=== PATIENT | female | born 1995 | race Caucasian/White ===

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

== ENCOUNTER 2018-05-16 21:21 | Emergency (ER) | payer MEDICAID, OTHER ==
[~2018-05-16] VITALS: Wt 66.2 kg
[~2018-05-16 21:21] MED LIST changes: +IBUP-1542 PO; +NITR-58 PO
[2018-05-16 21:25] VITALS: Wt 66.2 kg
[2018-05-16] MEDS ORDERED: KETOROLAC 30 MG INJ IV STA (21:58)
[2018-05-16] MEDS ORDERED: METOCLOPRAMIDE 10 MG INJ IV STA (21:58)
[2018-05-16] MEDS ORDERED: DIPHENHYDRAMINE 50 MG INJ IV STA (21:58)
[2018-05-16] MEDS ORDERED: LORAZEPAM 0.5 MG TAB PO ONE (22:00)
--- NOTE | 2018-05-16 23:42 | ERD ---
ER Documentation Chief Complaint Chief Complaint PETERSEN, anxiety, runny nose x2wks; no relief w tylenol HPI 22-year-old female presenting with complaints of right-sided intermittent headache for the past 2 weeks that sometimes radiates to the left side of her head. She describes as aching. No associated nausea, vomiting, vision disturbance, fever, chills, URI symptoms. Headache was gradual in onset. She also complains of severe anxiety that is not being treated with any medications at this time. Her headaches are worse with her anxiety attacks. She recently lost her brother a few months ago and has also been grieving. She denies any suicidal thoughts or ideations. ROS All systems reviewed and are negative except as per history of present illness. Medications Home Meds Discontinued Reported Medications Guaifenesin/D-Methorphan Hb/Pe (TUSSIN CF COUGH & COLD LIQ) 118 Ml Liquid, PRN 12/26/12 Discontinued Scripts Nitrofurantoin Monohyd Macrocr* (Macrobid*) 100 Mg Capsr, 100 MG PO BID for 7 Days, CAP Prov:QUE MIRANDA PA-C 04/18/16 Ibuprofen* (Motrin*) 600 Mg Tab, 600 MG PO Q6, #30 TAB Prov:QUE MIRANDA PA-C 04/18/16 Allergies Allergies: Coded Allergies: No Known Allergy (Unverified , 05/16/18) PMhx/Soc History of Surgery: No Anesthesia Reaction: No Hx Neurological Disorder: No Hx Respiratory Disorders: No Hx Cardiac Disorders: No Hx Psychiatric Problems: Yes (Anxiety) Hx Miscellaneous Medical Probl: No Hx Alcohol Use: No Hx Substance Use: No Hx Tobacco Use: No Smoking Status: Never smoker FmHx Family History: No diabetes Physical Exam Vitals Vital Signs Date Temp Pulse Resp B/P (MAP) Pulse Ox O2 O2 Flow FiO2 Time Delivery Rate 05/16/18 84 16 90/48 (62) 100 Room Air 23:37 05/16/18 101.0 120 22 127/69 99 21:25 (88) Physical Exam Const: No acute distress Head: Atraumatic Eyes: Normal Conjunctiva, PERRLA, EOMI ENT: Normal External Ears, Nose and Mouth. Neck: Full range of motion. No meningismus. Resp: Clear to auscultation bilaterally Cardio: Regular rate and rhythm, no murmurs Abd: Soft, non tender, non distended. Normal bowel sounds Skin: No petechiae or rashes Back: No midline or flank tenderness Ext: No cyanosis, or edema Neur: Awake and alert Psych: Very anxious and tearful. Normal judgment and insight. No SI or HI Results 24 hrs Laboratory Tests Test 05/16/18 22:04 POC Beta HCG, Qualitative NEGATIVE Current Medications Medications Dose Sig/Veronica Start Time Status Last (Trade) Ordered Route PRN Stop Time Admin Dose Reason Admin Lorazepam 0.5 mg ONCE ONCE 05/16/18 DC 05/16/18 (Ativan) PO 22:00 05/16/18 22:16 22:01 10 mg ONCE STAT 05/16/18 DC 05/16/18 Metoclopramid IV 21:58 05/16/18 22:16 e HCl 22:00 (Reglan) Ketorolac 30 mg ONCE STAT 05/16/18 DC 05/16/18 Tromethamine IV 21:58 05/16/18 22:15 (Toradol) 22:00 25 mg ONCE STAT 05/16/18 DC 05/16/18 Diphenhydrami IV 21:58 05/16/18 22:16 ne HCl 22:00 (Benadryl) Procedures/MDM Initial Nursing notes reviewed. Previous Medical Records requested via the Electronic Health Record. EMERGENCY DEPARTMENT COURSE / MEDICAL DECISION MAKING: Patient is presenting with 2 weeks of intermittent headaches and severe anxiety. Vitals were initially notable for possible low-grade fever and tachycardia. However upon reevaluation, she does not have a fever and her tachycardia has improved. Patient does not seem to be a danger to herself. I gave her Ativan orally and give her Reglan, Toradol, and Benadryl for her headache with improvement of her symptoms. I do not suspect acute intracranial hemorrhage, meningitis, encephalitis, or other serious cause of headaches. She is likely suffering from a primary headache that is worsened by her anxiety. Patient feels much better and is stable for discharge. Vitals remained stable while here. Return precautions were discussed. Outpatient follow-up with therapist and psychiatry was recommended. Departure Diagnosis: Primary Impression: Anxiety Additional Impression: Headache Headache type: unspecified Headache chronicity pattern: acute headache Intractability: not intractable Qualified Codes: R51 - Headache Condition: Stable Patient Instructions: Your Body's Response to Anxiety, Grief and Loss, Self- Care for Headaches Referrals: NO PRIMARY,CARE PHYSICIAN (PCP) Additional Instructions: Make an appointment with your therapist for follow-up. I would also recommend you see a psychiatrist. If any of your symptoms worsen or you have any thoughts of self-harm, please return to the ER immediately. IVONNE BRINK MD May 16, 2018 23:42
[2018-05-17 01:10] VITALS: BP 99/53; PULSE 90; RESP 16
== END 2018-05-17 01:10 | disposition home or self-care (01) ==
LOC: E/R 21:21
DX: F41.9 Anxiety disorder, unspecified (principal)
CPT/HCPCS: 81025; 96374; 96375; J1200; J1885; J2765; Z7502; Z7610

== ENCOUNTER 2018-05-19 20:18 | Emergency (ER) | payer MEDICAID ==
[~2018-05-19] VITALS: Wt 65.5 kg
[2018-05-19 20:21] VITALS: Wt 65.5 kg
[2018-05-19] MEDS ORDERED: LORAZEPAM 0.5 MG TAB PO ONE (21:00)
[2018-05-19] MEDS ORDERED: BUTA1CAP38 PO (22:16)
[2018-05-19] MEDS ORDERED: BUSP10TA2 PO (22:16)
--- NOTE | 2018-05-19 22:20 | ERD ---
ER Documentation Chief Complaint Chief Complaint ANXIETY. PETERSEN X'S 3 WEEKS; SEEN HERE 5 DAYS AGO FOR SAME COMPLAINT HPI 22-year-old female presents with sensation of anxiety for last 3 weeks. She is general fearful thoughts. Denies shortness of breath, chest pain, vomiting, abdominal pain, deficits, visual changes. She has an additional complaint of headache on the top of her head for the same time. As well. Her anxiety she believes is related to obsessing about the of her brother which happened a long time ago but she is only now dealing with it. She has not sought counseling. She was seen here previously not prescribed any medication. Denies any fevers, additional symptoms. She denies . Patient states that her headache is also causing anxiety because her mother was treated for an aneurysm and she believes she has something serious. Headache is on the top of her head mostly constant. Dull without radiation. Pain is described as 8 out of 10. ROS All systems reviewed and are negative except as per history of present illness. Medications Home Meds Active Scripts Yoltweorly-Bmewyfghajndi-Rrufuvvs* (Fioricet*) 50-300-40 Mg Capsule, 1 CAP PO Q4H PRN for bid, #15 CAP Prov:ANAMIKA ALVARADO MD 05/19/18 Buspirone Hcl* (Buspirone Hcl*) 10 Mg Tab, 10 MG PO BID, #30 TAB Prov:ANAMIKA ALVARADO MD 05/19/18 Discontinued Reported Medications Guaifenesin/D-Methorphan Hb/Pe (TUSSIN CF COUGH & COLD LIQ) 118 Ml Liquid, PRN 12/26/12 Discontinued Scripts Nitrofurantoin Monohyd Macrocr* (Macrobid*) 100 Mg Capsr, 100 MG PO BID for 7 Days, CAP Prov:QUE MIRANDA PA-C 04/18/16 Ibuprofen* (Motrin*) 600 Mg Tab, 600 MG PO Q6, #30 TAB Prov:QUE MIRANDA PA-C 04/18/16 Allergies Allergies: Coded Allergies: No Known Allergy (Unverified , 05/16/18) PMhx/Soc History of Surgery: No Anesthesia Reaction: No Hx Neurological Disorder: No Hx Respiratory Disorders: No Hx Cardiac Disorders: No Hx Psychiatric Problems: Yes (Anxiety) Hx Miscellaneous Medical Probl: No Hx Alcohol Use: No Hx Substance Use: No Hx Tobacco Use: No Smoking Status: Never smoker FmHx Family History: No diabetes, No coronary disease, No other Physical Exam Vitals Vital Signs Date Temp Pulse Resp B/P (MAP) Pulse Ox O2 O2 Flow FiO2 Time Delivery Rate 05/19/18 99.9 140 20 139/66 98 20:21 (90) Physical Exam Const: No acute distress. Tearful. Head: Atraumatic Eyes: Normal Conjunctiva ENT: Normal External Ears, Nose and Mouth. Neck: Full range of motion. No meningismus. Resp: Clear to auscultation bilaterally Cardio: Regular rate and rhythm, no murmurs Abd: Soft, non tender, non distended. Normal bowel sounds Skin: No petechiae or rashes Back: No midline or flank tenderness Ext: No cyanosis, or edema Neur: Awake and alert. Normal gait. No appreciable focal neurologic deficits. Cranial nerves II through XII grossly intact. No cerebellar signs. Psych: Normal Mood and Affect Results 24 hrs Laboratory Tests Test 05/19/18 20:54 POC Beta HCG, Qualitative NEGATIVE Current Medications Medications Dose Sig/Veronica Start Time Status Last (Trade) Ordered Route PRN Stop Time Admin Dose Reason Admin Lorazepam 0.5 mg ONCE ONCE 05/19/18 DC 05/19/18 (Ativan) PO 21:00 05/19/18 20:55 21:01 Procedures/MDM Patient presents with a history of generalized symptoms of anxiety without chest pain, shortness of breath. She has had a headache for the last few weeks. She is concerned about serious etiology for headache. She denies suicidal or homicidal ideations. She is given Ativan 0.5 mg by mouth. HCG negative. CT brain read as normal by the radiologist. Patient has no signs of bleeding, neurologic deficit, signs of meningitis, additional emergent causes of headache. She will be treated with a course of BuSpar, Fioricet, recommendations for primary care follow-up and given resources on counseling for her anxiety and in her family. The patient was stable with no new complaints during the ER course. Clinically, there is no current evidence to suggest meningitis, sepsis, acute abdomen, pneumonia, stroke, acute coronary syndrome, pulmonary embolism, aortic dissection or any other emergent condition appearing to require further evaluation or hospitalization. Patient counseled regarding my diagnostic impression and care plan. Prior to discharge all questions answered. Pt agrees with treatment plan and understands strict return precautions. Pt is instructed to follow up with primary care provider within 24-48 hours. Precautionary instructions provided including instructions to return to the ER if not improving or for any worsening or changing symptoms or concerns. Departure Diagnosis: Primary Impression: Headache Headache type: unspecified Headache chronicity pattern: unspecified pattern Intractability: not intractable Qualified Codes: R51 - Headache Additional Impression: Anxiety Condition: Stable Patient Instructions: Self-Care for Headaches, Anxiety Reaction Referrals: [facility] YOU HAVE RECEIVED A MEDICAL SCREENING EXAM AND THE RESULTS INDICATE THAT YOU DO NOT HAVE A CONDITION THAT REQUIRES URGENT TREATMENT IN THE EMERGENCY DEPARTMENT. FURTHER EVALUATION AND TREATMENT OF YOUR CONDITION CAN WAIT UNTIL YOU ARE SEEN IN YOUR DOCTORS OFFICE WITHIN THE NEXT 1-2 DAYS. IT IS YOUR RESPONSIBILITY TO MAKE AN APPOINTMENT FOR FOLOW-UP CARE. IF YOU HAVE A PRIMARY DOCTOR --you should call your primary doctor and schedule an appointment IF YOU DO NOT HAVE A PRIMARY DOCTOR YOU CAN CALL OUR PHYSICIAN REFERRAL HOTLINE AT IF YOU CAN NOT AFFORD TO SEE A PHYSICIAN YOU CAN CHOSE FROM THE FOLLOWING [facility] [address] [facility]. [facility] [address] [facility] [facility] [address] [facility] [facility] [address] [facility] [address] [facility]. [facility]. [address] Additional Instructions: CT read as normal today. Recommend counseling for anxiety. Recheck with primary doctor for further evaluation and management of headaches. Recheck otherwise for fevers, new or worsening symptoms. ANAMIKA ALVARADO MD May 19, 2018 22:20
[2018-05-19 22:28] VITALS: BP 119/76; PULSE 106; RESP 17
== END 2018-05-19 22:30 | disposition home or self-care (01) ==
LOC: FTE 20:18
DX: F41.9 Anxiety disorder, unspecified (principal); R51 Headache
CPT/HCPCS: 70450; 81025; Z7502; Z7610

== ENCOUNTER 2018-07-30 20:52 | Emergency (ER) | payer MEDICAID ==
[~2018-07-30] VITALS: Ht 152.4 cm; Wt 65.2 kg
[~2018-07-30 20:52] MED LIST changes: +BUSP10TA2 PO; +BUTA1CAP38 PO; -IBUP-1542 PO; -NITR-58 PO; -[UNRECOGNIZED DRUG - CODE]
[2018-07-30 20:59] VITALS: Ht 152.4 cm; Wt 65.2 kg
[2018-07-31] MEDS ORDERED: KETOROLAC 15 MG INJ IV STA (00:16)
[2018-07-31] MEDS ORDERED: ONDANSETRON 4 MG INJ IV STA (00:16)
[2018-07-31] MEDS ORDERED: SOD CHLORIDE 0.9% 1,000 ML IV STA (00:16)
[2018-07-31 03:08] VITALS: BP 117/57; PULSE 81; RESP 18
--- NOTE | 2018-07-31 05:55 | ERD ---
ER Documentation Chief Complaint Chief Complaint PELVIC PAIN X'S 3 DAYS HPI 22-year-old female with no significant past medical history presenting to the emergency department with complaints of sudden onset right-sided pelvic pain for the past 3 days. She states the pain is sharp and intermittent. She took no medication for relief of symptoms. She states her pain is completely resolved now. She has had nausea as well. She has never been sexually active in her life. She denies dysuria, vomiting, diarrhea, abdominal pain, fevers, or other symptoms at this time. ROS All systems reviewed and are negative except as per history of present illness. Medications Home Meds Active Scripts Enlqwntiwj-Suqvqzuhqfvnk-Fwinigtr* (Fioricet*) 50-300-40 Mg Capsule, 1 CAP PO Q4H PRN for bid, #15 CAP Prov:ANAMIKA ALVARADO MD 05/19/18 Buspirone Hcl* (Buspirone Hcl*) 10 Mg Tab, 10 MG PO BID, #30 TAB Prov:ANAMIKA ALVARADO MD 05/19/18 Allergies Allergies: Coded Allergies: No Known Allergy (Unverified , 05/16/18) PMhx/Soc Medical and Surgical Hx: pt denies Surgical Hx History of Surgery: No Anesthesia Reaction: No Hx Neurological Disorder: No Hx Respiratory Disorders: No Hx Cardiac Disorders: No Hx Psychiatric Problems: Yes (Anxiety) Hx Miscellaneous Medical Probl: No Hx Alcohol Use: No Hx Substance Use: No Hx Tobacco Use: No Smoking Status: Never smoker FmHx Family History: No diabetes Physical Exam Vitals Vital Signs Date Temp Pulse Resp B/P (MAP) Pulse Ox O2 O2 Flow FiO2 Time Delivery Rate 07/31/18 98.0 81 18 117/57 100 Room Air 03:08 (77) 07/30/18 98.7 109 20 134/63 98 20:59 (86) Physical Exam Const: No acute distress Head: Atraumatic Eyes: Normal Conjunctiva ENT: Normal External Ears, Nose and Mouth. Neck: Full range of motion. No meningismus. Resp: Clear to auscultation bilaterally Cardio: Regular rate and rhythm, no murmurs Abd: Soft, tenderness palpation of the right pelvic region and right lower quadrant without rebound tenderness or guarding, non distended. Normal bowel sounds Skin: No petechiae or rashes Back: No midline or flank tenderness Ext: No cyanosis, or edema Neur: Awake and alert Psych: Normal Mood and Affect Result Diagram: 07/31/18 0021 07/31/18 0021 Results 24 hrs Laboratory Tests Test 07/30/18 23:37 07/30/18 23:38 07/31/18 00:21 POC Beta HCG, Qualitative NEGATIVE Bedside Urine pH (LAB) 7.0 Bedside Urine Protein (LAB) Negative Bedside Urine Glucose (UA) Negative Bedside Urine Ketones (LAB) Negative Bedside Urine Blood Trace-lysed Bedside Urine Nitrite (LAB) Positive Bedside Urine Leukocyte Esterase Trace (L White Blood Count 5.6 10^3/ul Red Blood Count 4.37 10^6/ul Hemoglobin 13.0 g/dl Hematocrit 39.1 % Mean Corpuscular Volume 89.5 fl Mean Corpuscular Hemoglobin 29.7 pg Mean Corpuscular 33.2 g/dl Hemoglobin Concent Red Cell Distribution Width 12.2 % Platelet Count 230 10^3/UL Mean Platelet Volume 11.5 fl Immature Granulocytes % 0.400 % Neutrophils % 58.5 % Lymphocytes % 32.6 % Monocytes % 7.4 % Eosinophils % 0.7 % Basophils % 0.4 % Nucleated Red Blood Cells % 0.0 /100WBC Immature Granulocytes # 0.020 10^3/ul Neutrophils # 3.3 10^3/ul Lymphocytes # 1.8 10^3/ul Monocytes # 0.4 10^3/ul Eosinophils # 0.0 10^3/ul Basophils # 0.0 10^3/ul Nucleated Red Blood Cells # 0.0 10^3/ul Prothrombin Time 12.5 Sec Prothrombin Time Ratio 1.0 INR International 0.92 Normalized Ratio Activated Partial Thromboplast 36.5 Sec Time Urine Color YELLOW Urine Clarity SLIGHTLY CLOUDY Urine pH 7.0 Urine Specific Thatcher 1.019 Urine Ketones NEGATIVE mg/dL Urine Nitrite POSITIVE mg/dL Urine Bilirubin NEGATIVE mg/dL Urine Urobilinogen 2+ mg/dL Urine Leukocyte Esterase 1+ Jose Daniel/ul Urine Microscopic RBC 2 /HPF Urine Microscopic WBC 3 /HPF Urine Bacteria MODERATE /HPF Urine Mucus FEW /HPF Urine Hemoglobin 1+ mg/dL Urine Glucose NEGATIVE mg/dL Urine Total Protein NEGATIVE mg/dl Sodium Level 140 mmol/L Potassium Level 4.2 mmol/L Chloride Level 105 mmol/L Carbon Dioxide Level 28 mmol/L Anion Gap 7 Blood Urea Nitrogen 14 mg/dl Creatinine 0.59 mg/dl Est Glomerular Filtrat > 60 mL/min Rate mL/min Glucose Level 102 mg/dl Calcium Level 9.1 mg/dl Total Bilirubin 0.5 mg/dl Direct Bilirubin 0.00 mg/dl Indirect Bilirubin 0.5 mg/dl Aspartate Amino Transf (AST/SGOT) 24 IU/L Alanine 16 IU/L Aminotransferase (ALT/SGPT) Alkaline Phosphatase 69 IU/L Total Protein 7.1 g/dl Albumin 4.4 g/dl Globulin 2.70 g/dl Albumin/Globulin Ratio 1.62 Lipase 64 U/L Current Medications Medications Dose Sig/Veronica Start Time Status Last (Trade) Ordered Route PRN Stop Time Admin Dose Reason Admin Sodium 1,000 ml @ Q1H STAT 07/31/18 DC 07/31/18 Chloride 1,000 mls/hr IV 00:16 00:35 07/31/18 01:15 Ondansetron 4 mg ONCE STAT 07/31/18 DC 07/31/18 HCl (Zofran IV 00:16 00:34 Inj) 07/31/18 00:17 Ketorolac 15 mg ONCE STAT 07/31/18 DC 07/31/18 Tromethamine IV 00:16 00:34 (Toradol) 07/31/18 00:18 [place] [id number] Radiology Main Line: [phone] DIAGNOSTIC IMAGING REPORT Patient: SHARON TANNER : 1995 Age: 22 Sex: F MR #: [id number] DOS: 07/31/18 0016 Ordering MD: NIRMAL NEGRO PA-C Location: E Room/Bed: PROCEDURE: US Pelvis. CLINICAL INDICATION: Pain TECHNIQUE: Multiple sagittal, oblique and transverse real time images were obtained of the lower abdomen and pelvis using a transabdominal approach. COMPARISON: None. FINDINGS: Examination is technically limited due to the fact that the bladder could not be fully distended and transvaginal examination was not performed due to the patient's sexual in activity. The uterus is normal limits in size measuring 7.42 x 4.07 x 4.32 cm. Myometrial echoes are homogeneous without focal lesions. Endometrium homogeneous without focal lesion normal thickness maximal AP diameter 0.41 cm. The ovaries could not be visualized. No adnexal masses or free fluid demonstrated. IMPRESSION: 1. Limited examination as described above. 2. Unremarkable uterus. 3. Nonvisualization of the ovaries. 4. No adnexal masses or free fluid demonstrated. RPTAT:AAJJ Physician Bindu Date Time Electronically viewed and signed by Reina Bland Physician on 07/31/2018 02:22 BM/ CC: NIRMAL NEGRO PA-C [id number] [place] [id number] Radiology Main Line: [phone] DIAGNOSTIC IMAGING REPORT Patient: SHARON TANNER : 1995 Age: 22 Sex: F MR #: [id number] DOS: 07/31/18 0016 Ordering MD: NIRMAL NEGRO PA-C Location: [facility]TE Room/Bed: PROCEDURE: CT Abdomen and Pelvis without contrast. CLINICAL INDICATION: Abdominal pain. TECHNIQUE: Unenhanced CT scan of the abdomen and pelvis was performed on a multi-detector high-resolution CT scanner. Coronal and sagittal reformatted images were obtained from the axial source images. Images were reviewed on a high-resolution PACS workstation. The total exam CTDI equals 9.2 mGy and the total exam DLP equals 491.0 mGy-cm. DICOM images are available. One or more of the following dose reduction techniques were utilized: 1.) Automated exposure control 2.) Adjustment of the mA +/- kV according to patient's size 3.) Use of iterative reconstruction technique. COMPARISON: 12/26/2012. FINDINGS: Evaluation of the soft tissues and viscera is limited in the absence of contrast. Partially visualized minimal bibasilar pulmonary subsegmental atelectasis. Heart base appears normal. Systemic vasculature appears grossly normal. No pathologic lymphadenopathy identified by imaging criteria. Liver demonstrates normal size and contour, without identifiable focal mass lesion in the absence of intravenous contrast. Gallbladder is mildly distended without identifiable pericholecystic inflammatory change or extrahepatic biliary ductal dilatation. Pancreas demonstrates normal contour, without identifiable peripancreatic inflammatory change. Spleen is normal in size. Adrenal glands appear normal. Bowel is unobstructed without free air, free fluid or focal mesenteric inflammatory change. Appendix appears normal. No identifiable significant diverticulosis nor evidence of acute diverticulitis. Kidneys demonstrate normal size, contour and orientation without identifiable focal mass lesion in the absence of intravenous contrast. Mild generalized bilateral renal medullary/papillary hyperattenuation may reflect dehydration or medullary nephrocalcinosis. No nephrolithiasis nor hydronephrosis. The ureters run unobstructed to a normal - appearing incompletely distended bladder. The uterus appears age appropriate. No pathologic adnexal mass identified in the absence of contrast. Osseous structures are intact. Superficial soft tissues and musculature appear normal. IMPRESSION: 1. Mild generalized bilateral renal medullary/papillary hyperattenuation may reflect dehydration or medullary nephrocalcinosis. Etiologic considerations include renal tubular acidosis, hypercalcemic metabolic disorders such as hyperparathyroidism, sarcoidosis and renal papillary necrosis. 2. No nephrolithiasis nor hydronephrosis. 3. The bowel is unobstructed without evidence of perforation or abscess, and the appendix appears normal. RPTAT: HSAN Physician Mohinder Date Time Electronically viewed and signed by Physician Mohinder on 07/31/2018 01:36 xN/ CC: NIRMAL NEGRO PA-C [id number] Procedures/MDM 22-year-old female presenting to the emergency department complaining of right pelvic pain. On examination she did have some tenderness palpation of the right pelvic region in the right lower quadrant. CT abdomen and pelvis showed mild generalized bilateral renal medullary/papillary hyperattenuation which may r eflect dehydration or medullary nephrocalcinosis. The full report interpreted by the radiologist may be viewed above. The patient was informed of these results and advised she will need follow-up with her primary care physician for further monitoring. CBC showed no evidence of significant leukocytosis or anemia. CMP showed no evidence of significant electrolyte disturbances or changes in renal or liver function. Urinalysis was concerning for urinary tract infection. Urine was negative. Patient stable and appropriate for discharge and further outpatient management with prescriptions to treat UTI. Patient's gastrointestinal symptoms have stabilized while in the department. No evidence of severe dehydration, sepsis, or surgical abdomen. Extensive discussion with family and patient that occult disease cannot be ruled out. 8 hour recheck for repeat abdominal exam is planned. No evidence of life- threatening pathology at time of discharge. Pt/family in agreement with disc harge plan/diagnosis. Pt/family advised to return immediately with any new or worsening symptoms. Follow-up with primary care physician within the next 1-2 days. Departure Diagnosis: Primary Impression: Acute pain in female pelvis Condition: NIRMAL Arvizu PA-C July 31, 2018 05:55
== END 2018-07-31 02:55 | disposition home or self-care (01) ==
LOC: FTE 20:52
DX: R10.2 Pelvic and perineal pain (principal); R11.0 Nausea
CPT/HCPCS: 36415; 74176; 76856; 80053; 81001; 81003; 81025; 83690; 85025; 85610; 85730; 96374; 96375; J1885; J2405; J7030; Z7502